=== PATIENT | female | born 1970 | race American Indian/Alaskan Native ===

== ENCOUNTER 2017-03-09 10:31 | Emergency (ER) | payer OTHER ==
[2017-03-09 10:41] VITALS: RESP 18; TEMP 98.4; O2SAT 100; BMI 36.1
--- NOTE | 2017-03-09 11:10 | ED PDOC ---
Arrival/HPI - General Chief Complaint: Headache Time Seen by Provider: 03/09/17 10:58 Historian: Patient - History of Present Illness Narrative History of Present Illness (Text): 03/09/17 11:05 A 46 year old female, whose past medical history includes anemia, presents to the emergency department complaining of dizziness since yesterday morning. Patient states her symptom worsens with movement and when standing. Patient notes nausea but denies any trauma, fever, chills, vomiting, abdominal pain, hematuria, hematochezia, chest pain, shortness of breath, cough, congestion, ear pain or any other complaints. Patient reports intermittent blurry vision for the past year. Time/Duration: Other (yesterday morning) Symptom Course: Unchanged Quality: Other Context: Home Past Medical History - Provider Review Nursing Documentation Reviewed: Yes - Infectious Disease Hx of Infectious Diseases: None - Hematological/Oncological Hx Anemia: Yes - Psychiatric Hx Substance Use: No - Surgical History Hx Section: Yes (x3) Other/Comment: fibroid - Anesthesia Hx Anesthesia Reactions: No Hx Malignant Hyperthermia: No Family/Social History - Physician Review Nursing Documentation Reviewed: Yes Family/Social History: No Known Family HX Smoking Status: Never Smoked Hx Alcohol Use: No Hx Substance Use: No Allergies/Home Meds Allergies/Adverse Reactions: Allergies No Known Allergies Allergy (Verified 03/09/17 10:46) Review of Systems - Physician Review All systems were reviewed & negative as marked: Yes - Review of Systems Constitutional: absent: Fevers, Night Sweats Eyes: Vision Changes ENT: absent: TMJ Pain, Sinus Congestion Respiratory: absent: SOB, Cough Cardiovascular: absent: Chest Pain Gastrointestinal: Nausea. absent: Abdominal Pain, Vomiting, Hematochezia Genitourinary Female: absent: Hematuria Neurological: Dizziness Physical Exam - Physical Exam Narrative Physical Exam (Text): Constitutional: No acute distress. Head: Normocephalic. Atraumatic. Eyes: PERRL. Right eye pterygium. ENT: Moist mucous membranes. Neck: Supple. Cardiovascular: Regular rate. Chest: No tenderness. Respiratory: Clear to auscultation bilaterally. GI: Soft. Nontender. Nondistended. Back: No CVA tenderness. Musculoskeletal: No tenderness or swelling of extremities. Skin: No rash. Neurologic: Alert, no focal deficit. Finger to nose normal. Heel to singh normal. Reproducible symptoms with Brian Hallpike. Vital Signs Reviewed: Yes Vital Signs Temp Pulse Resp BP Pulse Ox 03/09/17 12:45 77 18 135/79 100 03/09/17 10:39 98.4 F 71 18 148/98 H 100 Temperature: Afebrile Blood Pressure: Hypertensive Pulse: Regular Respiratory Rate: Normal Appearance: Positive for: Well-Appearing, Non-Toxic, Comfortable Pain Distress: None Mental Status: Positive for: Alert and Oriented X 3 Medical Decision Making ED Course and Treatment: 03/09/17 12:30 On re-evaluation, patient feels better and is in no acute distress. She is able to sit/stand up and ambulate without difficulty. I have discussed the plan with the patient, who expresses understanding. Patient in agreement with plan to be discharged home. Patient is stable for discharge. Patient was instructed to follow up with ENT specialist or return if symptoms worsen or new concerning symptoms arise. - Lab Interpretations Lab Results: 03/09/17 10:50 03/09/17 10:50 Lab Results 03/09/17 10:50: Sodium 140, Potassium 3.7, Chloride 105, Carbon Dioxide 26, Anion Gap 13, BUN 14, Creatinine 0.8, Est GFR ( Amer) > 60, Est GFR (Non- Af Amer) > 60, Random Glucose 100, Calcium 9.7, Total Bilirubin 0.6, AST 24, ALT 39, Alkaline Phosphatase 82, Total Protein 7.7, Albumin 4.2, Globulin 3.5, Albumin/Globulin Ratio 1.2, Lipase 93 03/09/17 10:50: WBC 6.2, RBC 4.84, Hgb 10.6 L, Hct 34.2 L, MCV 70.7 L, MCH 21.9 L, MCHC 31.0, RDW 17.9 H, Plt Count 226, Gran % 69.3 H, Lymph % (Auto) 24.4, [place] % (Auto) 5.4, Eos % (Auto) 0.6 L, Baso % (Auto) 0.3, Gran # 4.27, Lymph # 1.5, [place] # 0.3, Eos # 0.0, Baso # 0.02 - Medication Orders Current Medication Orders: Discontinued Medications Meclizine HCl (Antivert) 50 mg PO STAT STA Stop: 03/09/17 11:07 Last Admin: 03/09/17 11:31 Dose: 50 mg - Scribe Statement The provider has reviewed the documentation as recorded by the Joelibsirisha Benavidez Provider Rupali Attestation: All medical record entries made by the Joelibe were at my direction and personally dictated by me. I have reviewed the chart and agree that the record accurately reflects my personal performance of the history, physical exam, medical decision making, and the department course for this patient. I have also personally directed, reviewed, and agree with the discharge instructions and disposition. Disposition/Present on Arrival - Present on Arrival Any Indicators Present on Arrival: No History of DVT/PE: No History of Uncontrolled Diabetes: No Urinary Catheter: No History of Decub. Ulcer: No History Surgical Site Infection Following: None - Disposition Have Diagnosis and Disposition been Completed?: Yes Diagnosis: BPPV (benign paroxysmal positional vertigo) Disposition: HOME/ ROUTINE Disposition Time: 12:30 Patient Plan: Discharge Condition: STABLE Discharge Instructions (ExitCare): Benign Paroxysmal Positional Vertigo (ED) Prescriptions: Meclizine [Antivert] 25 mg PO TID PRN #20 tab PRN Reason: Dizziness Referrals: López Perkins DO [Staff Provider] - Follow up with primary Forms: [employer] (Kinyarwanda)
[2017-03-09 11:47] LABS: BASO # 0.02 K/mm3 (0.0-2.0); BASO % 0.3 % (0.0-3.0); EOS % 0.6 % (1.5-5.0); GRAN # 4.27 (1.4-6.5); GRAN % 69.3 % (50.0-68.0); HEMATOCRIT 34.2 % (36.0-48.0); LYMPH # 1.5 (1.2-3.4); LYMPH % 24.4 % (22.0-35.0); MEAN CELL VOLUME 70.7 fl (80.0-105.0); MEAN CORPUSCULAR HEMOGLOBIN 21.9 pg (25.0-35.0); MONO # 0.3 (0.1-0.6); MONO % 5.4 % (1.0-6.0); PLATELET COUNT 226 10^3/uL (120.0-450.0); RED CELL DISTRIBUTION WIDTH 17.9 % (11.5-14.5); WHITE BLOOD COUNT 6.2 10^3/ul (4.5-11.0)
[2017-03-09 12:02] LABS: ALB/GLOB RATIO 1.2 (1.1-1.8); ALKALINE PHOSPHATASE 82 U/L (38-126); ALT/SGPT 39 U/L (7-56); AST/SGOT 24 U/L (14-36); BILIRUBIN,TOTAL 0.6 mg/dL (0.2-1.3); BLOOD UREA NITROGEN 14 mg/dL (7-21); CALCIUM 9.7 mg/dL (8.4-10.5); CARBON DIOXIDE 26 mmol/L (21-33); CHLORIDE 105 mmol/L (98-107); GFR AFRICAN-AMERICAN > 60; GLUCOSE,RANDOM 100 mg/dL (70-110); LIPASE 93 U/L (23-300); POTASSIUM 3.7 mmol/L (3.6-5.0); SODIUM 140 mmol/L (132-148); TOTAL PROTEIN 7.7 g/dL (5.8-8.3)
[2017-03-09 12:46] VITALS: BP 135/79; PULSE 77
== END 2017-03-09 12:44 | disposition home or self-care (01) ==
LOC: ED 10:31
DX: H81.10 Benign paroxysmal vertigo, unspecified ear (principal)